=== PATIENT | female | born 1945 | race Caucasian/White ===

== ENCOUNTER 2017-04-17 19:30 | Outpatient (CLI) | payer MEDICARE, MEDICAID | END 2017-04-17 19:31 | disposition home or self-care (01) | LOC: SLEEPLAB 19:30 | PROVIDERS: ATTEND Family Medicine | DX: G47.33 Obstructive sleep apnea (adult) (pediatric) (principal); G47.10 Hypersomnia, unspecified; R53.83 Other fatigue; E66.9 Obesity, unspecified; I10 Essential (primary) hypertension; I25.10 Atherosclerotic heart disease of native coronary artery without angina pectoris | CPT/HCPCS: 95811 ==

== ENCOUNTER 2017-05-20 13:20 | Outpatient (CLI) | payer MEDICARE, MEDICAID ==
--- NOTE | 2017-05-20 14:54 | RAD ---
FRONTAL AND LATERAL IMAGING OF THE LUMBAR SPINE: Date: 05-20-17 Comparison: 03-29-17 History: Lumbar stenosis. Lumbar spine surgery in February. FINDINGS: Standing frontal and lateral radiograph lumbar spine provided. There is a disc device at the L4-5 level. Bilateral L4 and L5 pedicle screws are present with vertic ally oriented interlocking rods, stable. Bone graft material is seen lateral to these rods. Bilatera l laminectomy changes are noted at L2, L3, L4 and L5, stable. Lateral imaging demonstrates retrolisthesis at L2-3 measuring 8 mm and at L3-4 measuring 6 mm, simil ar when compared to prior imaging. There is disc space narrowing and anterior osteophyte formation a t L1-2 and L2-3, stable as well. IMPRESSION: Stable post-operative and degenerative changes within the lumbar spine as detailed above. POS: [facility]
== END 2017-05-20 13:21 | disposition home or self-care (01) ==
LOC: TBSIIMAG 13:20
PROVIDERS: ATTEND Neurological Surgery
DX: M48.061 Spinal stenosis, lumbar region without neurogenic claudication (principal); M47.816 Spondylosis without myelopathy or radiculopathy, lumbar region; Z98.890 Other specified postprocedural states
CPT/HCPCS: 72100

== ENCOUNTER 2017-09-04 21:31 | Inpatient (IN) | payer MEDICARE, MEDICAID ==
--- NOTE | 2017-09-04 22:26 | CT ---
CT HEAD WITHOUT CONTRAST: 09/04/17 Multiple axial tomograms obtained through the head without IV enhancement. HISTORY: Right side weakness. Possible stroke. Comparison made to MRI of brain from 11/16/15. FINDINGS: Mild cortical volume loss. There is evidence of old lacunar infarct in the left periventricular white matter adjacent to the anterior horn on the left. This was noted on the prior MRI. There is no evide nce of acute cortical infarct. There is no mass or hemorrhage identified. IMPRESSION: There are chronic ischemic changes. which appear stable from the prior MRI. No acute process. Mucosal thickening in the paranasal sinuses is noted. POS: [facility]
--- NOTE | 2017-09-04 22:34 | RAD ---
PORTABLE CHEST: 09/04/17 HISTORY: Possible CVA. Right sided weakness. Lung simmons appear clear of infiltrate. Heart size is upper normal with postop sternotomy change. No evidence of vascular congestion or acute process. IMPRESSION: No acute process identified. POS: [facility]
[2017-09-04 23:10] LABS: %Neutrophils 53.3 % (42.0-75.0); Hemoglobin 11.9 g/dL (12.0-16.0); Mean Corpuscular Hemoglobin 29.5 pg (27.0-31.0); Mean Corpuscular Volume 92.1 fl (81.0-99.0); Mean Platelet Volume 6.2 fL (7.4-10.4); Platelet Count 195 thou/uL (130-400); Red Blood Cell (RBC) Count 4.04 mill/uL (4.20-5.40); White Blood Cell (WBC) Count 7.2 thou/uL (4.8-10.8)
[2017-09-04 23:11] LABS: #Basophils 0.1 thou/uL (0.0-0.2); #Eosinphils 0.3 thou/uL (0.0-0.7); #Lymphocytes 2.5 thou/uL (1.20-3.40); #Monocytes 0.5 thou/uL (0.11-0.59); #Neutrophils 3.9 thou/uL (1.40-6.50); %Basophils 0.7 % (0.0-1.0); %Eosinophils 4.8 % (0.0-10.0); %Monocytes 7.3 % (0.0-10.0)
[2017-09-04 23:13] LABS: Prothrombin Time 13.4 SEC (12.0-14.7)
[2017-09-04 23:25] LABS: ALT (SGPT) 8 U/L (8-55); AST (SGOT) 10 U/L (5-34); Albumin 4.3 g/dL (3.4-4.8); Alkaline Phosphatase 81 U/L (40-150); Anion Gap 15 mmol/L (10-20); BUN (Urea Nitrogen) 14 mg/dL (9.8-20.1); Bilirubin, Total 0.3 mg/dL (0.2-1.2); Calc. Creatinine Clearance 0 mL/min (70-130); Calcium 9.5 mg/dL (7.8-10.44); Carbon Dioxide 25 mmol/L (23-31); Chloride 104 mmol/L (98-107); Estimated GFR-MDRD 59; Globulin 2.8 g/dL (2.4-3.5); Glucose 183 mg/dL (83-110); Magnesium 1.7 mg/dL (1.6-2.6); Potassium 3.7 mmol/L (3.5-5.1); Protein, Total 7.1 g/dL (6.0-8.3); Sodium 140 mmol/L (136-145)
[2017-09-04 23:27] LABS: CKMB 0.7 ng/mL (0-6.6); Troponin I 0.018 ng/mL (< 0.028)
[2017-09-05 02:48] LABS: Troponin I Less than 0.010 ng/mL (< 0.028)
[2017-09-05] MEDS ORDERED: Bisacodyl 10 MG SUPP PR PRN (05:11)
[2017-09-05] MEDS ORDERED: Calcium Carbonate 500 MG ChewTAB PO PRN (05:11)
[2017-09-05] MEDS ORDERED: Ondansetron HCl/PF 4 MG/2 ML Vial IVP PRN (05:11)
[2017-09-05] MEDS ORDERED: Senokot 8.6 MG TAB PO PRN (05:11)
[2017-09-05] MEDS ORDERED: Ondansetron ODT 4 MG TAB PO PRN (05:11)
[2017-09-05] MEDS ORDERED: Acetaminophen 325 MG TAB PO PRN (05:11)
[2017-09-05] MEDS ORDERED: hydrALAZINE 20 MG/ML VIAL SLOW IVP PRN (05:14)
[2017-09-05 05:36] LABS: #Eosinphils 0.4 thou/uL (0.0-0.7); #Monocytes 0.6 thou/uL (0.11-0.59); #Neutrophils 3.2 thou/uL (1.40-6.50); %Basophils 0.6 % (0.0-1.0); %Eosinophils 5.3 % (0.0-10.0); %Lymphocytes 42.1 % (21.0-51.0); Hemoglobin 12.3 g/dL (12.0-16.0); Mean Corpuscular HGB CONC 33.5 g/dL (32.0-36.0); Mean Corpuscular Hemoglobin 31.8 pg (27.0-31.0); Mean Corpuscular Volume 94.9 fl (81.0-99.0); Mean Platelet Volume 6.8 fL (7.4-10.4); Platelet Count 180 thou/uL (130-400); RBC Distribution Width 12.1 % (11.5-14.5); Red Blood Cell (RBC) Count 3.87 mill/uL (4.20-5.40); White Blood Cell (WBC) Count 7.2 thou/uL (4.8-10.8)
[2017-09-05 05:42] LABS: Troponin I Less than 0.010 ng/mL (< 0.028)
[2017-09-05 05:45] LABS: Anion Gap 14 mmol/L (10-20); BUN (Urea Nitrogen) 17 mg/dL (9.8-20.1); Calc. Creatinine Clearance 70 mL/min (70-130); Calcium 9.4 mg/dL (7.8-10.44); Carbon Dioxide 22 mmol/L (23-31); Chloride 106 mmol/L (98-107); Estimated GFR-MDRD 66; Glucose 102 mg/dL (83-110); Potassium 3.9 mmol/L (3.5-5.1); Sodium 138 mmol/L (136-145)
[2017-09-05 05:47] LABS: Hemoglobin A1c 5.9 % (4.0-6.0)
--- NOTE | 2017-09-05 06:49 | HP-2 ---
CODE STATUS: Full. ATTENDING: Dr. Elmer Gutiérrez RESIDENT: Dr. Juan Mendoza CHIEF COMPLAINT: Right-sided weakness. HISTORY OF PRESENT ILLNESS: A 71-year-old female who presents with dysarthria and word salad on night. The patient began to have a right-sided upper and lower extremity weakness and numbness morning when she woke up. She also was unable to hold her arm prior to arriving to the ED. She also states that she has associated headache and right lower facial numbness. Her sister is pr esent during this interview and said that she does not necessarily have a hard time producing words, but she says that she has a hard time trying to find the correct words and the correct sequence and a ppropriate manner. The patient has denied chest pain, shortness of breath, and vision changes during this time. The patient does admit that she has had a headache and that is out of the norm for her. No other complaints at this time. PAST MEDICAL HISTORY: CAD, PVD, hyperlipidemia, hypertension, prior CVA, asthma, lumbar radiculopath y and obstructive sleep apnea. PAST SURGICAL HISTORY: Tonsillectomy, adenoidectomy, , tubal ligation, a 3-vessel CABG in 2 017. ALLERGIES: BETA BLOCKERS, LIPITOR, CRESTOR. MEDICATIONS: 1. Ferrous gluconate 37.5 mg p.o. daily. 2. Lisinopril 10 mg p.o. daily. 3. Fluvastatin 40 mg. 4. Aspirin 81 mg. 5. Bimatoprost eyedrops. 6. Diltiazem 120 mg extended release. 7. Clopidogrel 75 mg. FAMILY HISTORY: Significant for heart issues. SOCIAL HISTORY: No tobacco, alcohol or drug use. REVIEW OF SYSTEMS: Twelve point review of systems was negative other than listed as above in the HPI . PHYSICAL EXAMINATION: VITAL SIGNS: BP was 155/68, pulse 87, temperature 98.3, respiration 16, oxygen saturation is 95% on room air, current weight 74 kilos. GENERAL: Alert and oriented x4, appropriate, interactive. EYES: PERRLA. ENT: Nasal mucosa and oropharynx within normal limits. NECK: Supple, no lymphadenopathy. CARDIOVASCULAR: Regular rate and rhythm. No murmurs. Radial and pedal pulses equal bilaterally. RESPIRATORY: Normal effort, no retraction. LUNGS: Clear to auscultation bilaterally. SKIN: Warm and dry. No cyanosis. She did have a bruise to the dorsum of her left foot. ABDOMEN: Soft, nontender to palpation. Bowel sounds present x4. No masses or distention. EXTREMITIES: No clubbing, cyanosis or edema. MUSCULOSKELETAL: Structure and tone were within normal limits. Muscle strength is 4/5 on her right upper extremity, 5/5 on her left upper extremity, she had 5/5 left lower extremity strength and her r ight lower extremity was 3/5. She also had a prior positive pronator drift and a right lower facial droop with paresthesias. NEUROLOGIC: GCS was 15. PSYCHIATRIC: Appropriate. LABORATORY DATA: White blood cell count 7.2, platelet count 195, hemoglobin 11.9, hematocrit 37.2, M CV 92.1, % neutrophils 53.3. Sodium was 140, potassium 3.7, chloride 104, bicarbonate 25, BUN 14, cr eatinine 0.93, glucose was 183. CK-MB was 0.7. Troponin I was 0.018. Calcium was 9.5, total protei n 7.1, albumin 4.3, total bilirubin 0.3, AST 10, ALT 8, alkaline phosphatase 81. PT was 13.4, INR is 1.0, mag was 1.7. TSH was 0.72. EKG showed normal sinus rhythm with T-wave inversions in V1 and V2 . Chest x-ray showed nothing acute. Brain CT showed chronic ischemic changes, no acute process. ASSESSMENT AND PLAN: A 71-year-old female. 1. Right extremity weakness, rule out cerebrovascular accident. She does have a past history of a c erebrovascular accident. We have MRI and MRA pending. We will continue her statin. Consult Neuro a nd the Stroke Team. We will also get PT, OT, and speech therapy on board for evaluation and treatmen t. She also has a past history of carotid stenosis. Her ABCD score is 6. We also have a fasting li pid panel and an A1c pending at this time. 2. Coronary artery disease status post 3-vessel coronary artery bypass graft. We will continue Plav ix and aspirin. 3. Hypertension. We are going to allow for permissive hypertension to 220/110. Her symptoms did be gin on Friday; however, her weakness did not begin until . At this time, it looks like he r blood pressure is well controlled without any acute intervention. 4. Hyperlipidemia. We will continue her statin therapy. 5. Mild anemia. We will continue her iron. We will recommend outpatient follow up for this. DISPOSITION/LENGTH OF HOSPITAL STAY: Stroke unit and 1. Symptomatic medications will be provided. History and physical exam as well as management has been discussed with Dr. Gutiérrez
[2017-09-05] MEDS: Sodium Chloride 0.9% 1,000 ML IV SCH ×2 (06:52→15:48)
[2017-09-05] MEDS: Docusate 100 MG CAP PO SCH ×2 (08:11→20:27)
[2017-09-05] MEDS: Famotidine 20 MG TAB PO SCH ×2 (08:11→20:27)
[2017-09-05] MEDS: Clopidogrel Bisulfate 75 MG TAB PO SCH (08:12)
[2017-09-05] MEDS ORDERED: Aspirin 81 mg Enteric Coated Tablet PO SCH (09:00)
[2017-09-05] MEDS ORDERED: Enoxaparin Sodium 40 MG/0.4 ML SYRINGE SC SCH (09:00)
--- NOTE | 2017-09-05 15:43 | MRI ---
BRAIN MRI WITH AND WITHOUT CONTRAST: CLINICAL HISTORY: History of carotid stenosis, CVA, right-sided weakness. FINDINGS: There is abnormal multifocal punctate restricted diffusion involving left MCA territory, within front al and parietal lobes and within bilateral deep arreola nuclei, compatible with recent infarctions. No significant intracranial hemorrhagic susceptibility. There is mild gliosis asymmetrical involving th e left cerebral hemisphere. No pathologic mass-producing intraaxial enhancement. The imaged skull b ase flow voids are grossly patent. There is scattered paranasal sinus mucosal thickening. Mild left mastoid and trace right mastoid fluid present. IMPRESSION: Punctate, multifocal left middle cerebral artery distribution, and bilateral basal ganglia recent inf arctions. POS: [facility]
--- NOTE | 2017-09-05 16:00 | MRI ---
MRA OF THE NECK WITH AND WITHOUT CONTRAST: 09/05/17 CLINICAL HISTORY: History of carotid stenosis, CVA, right sided weakness. FINDINGS: There is patient motion on the exam which does limit assessment. The imaged aortic arch is grossly pa tent as are the great vessels that emanate from the aortic arch. The visualized subclavian arteries r eveals no high grade focal stenosis or occlusion. The proximal aspect of the right vertebral artery i s limited in visualization. Otherwise, the bilateral vertebral arteries are patent as is the basilar artery. Each common carotid artery reveals no high grade stenosis or occlusion. There is mild concent porfirio narrowing of the each proximal aspect of the bilateral cervical internal carotid arteries which a re otherwise patent. IMPRESSION: Concentric areas of mild luminal stenosis involving the proximal aspect of each cervical ICA. Incomplete visualization of the proximal aspect of the right vertebral artery. POS: [facility]
[2017-09-05] MEDS ORDERED: ISOVUE-370 76%-LOCM 1 ML ONE (16:41)
[2017-09-05] MEDS ORDERED: Gadobenate Dimeglumine 529 MG/1 ML (20ML VIAL) ONE ×2 (16:42→16:43)
[2017-09-05] MEDS: Latanoprost 0.005% Ophth Soln 2.5 ml Bottle EA EYE SCH (20:26)
[2017-09-05] MEDS: FLUVASTATIN SODIUM 20 MG PO SCH (20:28)
[2017-09-05] MEDS ORDERED: BIMATOPROST TOP SCH (21:00)
[2017-09-05] MEDS ORDERED: FLUVASTATIN SODIUM 40 MG PO SCH (21:00)
--- NOTE | 2017-09-05 23:01 | CT ---
CT OF BRAIN PERFORMED WITHOUT CONTRAST ENHANCEMENT: 09/05/17 HISTORY: Altered mental status. COMPARISON: Prior day's study. The ventricular and cisternal system shows some mild atrophy. An old area of infarct adjacent to the left frontal horn is noted. There is no signs of intracerebral hemorrhage or extra-axial fluid collec tions. Mastoid air cells are clear. There is extensive bilateral ethmoid air cell disease. Also some frontal sinus and maxillary sinus mucosal changes. IMPRESSION: 1. No acute intracranial abnormalities. 2. Fairly extensive sinus disease. POS: [facility]
--- NOTE | 2017-09-05 23:39 | CT ---
CT ANGIO OF HEAD AND NECK PERFORMED WITH CONTRAST ENHANCEMENT WITH 3D RECONSTRUCTIONS: 09/05/17 HISTORY: Right sided weakness. History of a previous CVA in 2014. COMPARISON: Previous CT of the brain done earlier today. CT ANGIO OF NECK PERFORMED WITH CONTRAST ENHANCEMENT: The lung apices are clear. The thyroid is normal in appearance. Focal cord region is unremarkable. Pa rapharyngeal spaces are clear. The parotid and submandibular gland regions are unremarkable. No signi ficant adenopathy demonstrated. A good angiographic study was obtained. The left vertebral artery is dominant. There is some atherosc lerotic change at the origin of the right vertebral. There is a bovine type origin of the left verteb ral artery from the right innominate. On the right side, the right common carotid artery is normal in appearance. There is dense calcification at the origin of the right internal carotid artery. It make s it difficult to estimate the degree of stenosis to be moderate, approximately 60% by NASCET criteri a. The distal right internal carotid artery is very tortuous. On the left side, there is no significant stenosis of the left common carotid artery. There is extens saman calcified and soft plaque at the origin of the left internal carotid artery, again with moderate stenosis. It is somewhat difficult estimated due to the presence of the calcified plaque, but I would estimate it as moderate to moderately severe, probably in the 70% range. CT ANGIO OF BRAIN PERFORMED WITH CONTRAST ENHANCEMENT: There is some atherosclerotic change in the cavernous portions of both internal carotid arteries. The A1 and M1 segments of both anterior and middle cerebral arteries as well as the M2 segments show no areas of significant narrowing or any signs of intraluminal thrombus. IMPRESSION: Moderate calcified plaque formation at the origin of both internal carotid arteries by NASCET criteri a. I would estimate the changes on the right to be moderate stenosis, probably greater than 50% range but probably less than 70% and the changes on the left to be in the 60-70% range. Both are difficult to estimated due to the calcified plaque. POS: [facility]
--- NOTE | 2017-09-06 00:04 | PDOC.EVN ---
Event Note - Event Note Event Note: Aly Andersen called on patient at 2229. Resident to beside. Patient's sister stated that she was more lethargic and was essentially aphasic. She also states that she had significant recurrence of her weakness on her right side. She states she was completely normal prior to this episode. She then became flushed , lethargic, and her deficits on her right side returned. NIH on admission was 2 and NIH during code was 13. Aly Andersen team responded efficiently with lab values drawn, a stat Head CT, and Head & Neck CTA. O: Gen: NAD HEENT: Facial paralysis, parathesias to lower face bilaterally CV: Tachycardic rate, regular rhythm Resp: No acute distress, CTA Abdomen: Soft, nontender Neuro: Expressive aphasia, 2/5 weakness to right Upper and Lower extremity A/P: 1. Recurrent right sided deficits with recent MCA infarcts - Continue Neuro checks - Allow for permissive HTN - Consider CV surgery consultation in AM for possible CEA - Dr. Hankins with Neurology has been consulted and a call was placed to him, pending response. - CTA showed no evidence of surgical amendable lesion. - Patient not candidate for TPA because of absolute contraindication of recent CVA 2 days ago. - Will continue plan of care. <Juan Mendoza - Last Filed: 09/05/17 23:53> Attending Addendum - Attending Addendum I personally evaluated the patient and discussed the management with Dr. Mendoza at 2330 on 09/05/17 I agree with the History, Examination, Assessment and Plan documented above with any addition or exceptions noted below. Patient is a 71 y/o WF admitted for L MCA infarct who has worsening of her neurologic function with R sided weakness and facial droop. A aly andersen was called and patient got CT head showing no hemorrhagic lesions. CTA done and didn't show a surgically amenable lesion. By the time I saw the patient at 2330 she was had RUE and RLE 4/5 strength and was fluent and A&O x 3. No obvious facial droop. Per family she was near her baseline. 1) MCA infarct- pt on ASA and plavix and appears to continue to have CVA. No obvious sign of embolic source- no atrial fibrillation and recent ECHO doesn't show any clots. Will check blood cx x 2 to r/o septic emboli (though history not consistent with this). Appreciate neuro recs for anticoagulation. Patient was not a tpa candidate secondary to her recent stroke and rapidly resolving symptoms. No surgically amenable lesion. 2) L ICA with 60-70% stenosis- in light of her recurrent CVAs recommend CV surg consult in am. <Chichi Winn - Last Filed: 09/06/17 00:14>
[2017-09-06] MEDS: Sodium Chloride 0.9% 1,000 ML IV SCH ×2 (00:42→09:18)
[2017-09-06 05:25] LABS: #Basophils 0.1 thou/uL (0.0-0.2); #Eosinphils 0.5 thou/uL (0.0-0.7); #Neutrophils 7.8 thou/uL (1.40-6.50); %Basophils 0.5 % (0.0-1.0); %Eosinophils 4.1 % (0.0-10.0); %Lymphocytes 24.6 % (21.0-51.0); %Monocytes 7.8 % (0.0-10.0); %Neutrophils 62.9 % (42.0-75.0); Hemoglobin 13.2 g/dL (12.0-16.0); Mean Corpuscular Volume 94.1 fl (81.0-99.0); Mean Platelet Volume 6.9 fL (7.4-10.4); Platelet Count 204 thou/uL (130-400); RBC Distribution Width 12.1 % (11.5-14.5); Red Blood Cell (RBC) Count 4.12 mill/uL (4.20-5.40); White Blood Cell (WBC) Count 12.4 thou/uL (4.8-10.8)
[2017-09-06 05:53] LABS: Anion Gap 14 mmol/L (10-20); BUN (Urea Nitrogen) 12 mg/dL (9.8-20.1); Calc. Creatinine Clearance 70 mL/min (70-130); Calcium 9.8 mg/dL (7.8-10.44); Carbon Dioxide 22 mmol/L (23-31); Cardiac Risk 4.6 (Less than 4.5); Chloride 107 mmol/L (98-107); Cholesterol 222 mg/dl (< 200 Desired); Estimated GFR-MDRD 67; Glucose 128 mg/dL (83-110); HDL Cholesterol 48 mg/dL (>60 Neg Risk); LDL Cholesterol, Calculated 144 mg/dL; Sodium 139 mmol/L (136-145); Triglycerides 151 mg/dL (Less than 150)
--- NOTE | 2017-09-06 08:31 | PDOC.FM ---
- Subjective Subjective: Overnight Aly Fermin was called, patient with new focal neurologic deficits and likely CVA. Today, patient is doing well. Sister reports overnight was unresponsive and not able to even form words. Today she is appropriately responding to questions with dysarthria no worse than yesterday. Patient still reports difficulty finding the words she wants to say. - Objective MAR Reviewed: Yes Vital Signs & Weight: Vital Signs (12 hours) Temp Pulse Pulse Pulse Pulse Pulse Pulse 09/06/17 08:00 99.6 F 100 09/06/17 04:38 98.7 F 105 H 09/06/17 00:46 98.9 F 108 H 09/05/17 22:30 102 H 105 H 114 H 111 H 115 H Pulse Pulse Pulse Resp Resp Resp Resp 09/06/17 08:00 20 09/06/17 04:38 20 09/06/17 00:46 16 09/05/17 22:30 110 H 110 H 115 H 20 24 H 20 Resp Resp Resp Resp Resp BP BP 09/06/17 08:00 09/06/17 04:38 09/06/17 00:46 09/05/17 22:30 20 24 H 20 18 24 H 197/98 H 205/95 H BP BP BP BP BP BP BP 09/06/17 08:00 141/76 H 09/06/17 04:38 148/90 H 09/06/17 00:46 165/88 H 09/05/17 22:30 196/110 H 191/111 H 203/92 H 144/82 H 186/111 H 160/86 H Pulse Ox Pulse Ox Pulse Ox Pulse Ox Pulse Ox Pulse Ox Pulse Ox 09/06/17 08:00 95 09/06/17 04:38 96 09/06/17 00:46 94 L 09/05/17 22:30 99 96 97 95 96 95 Pulse Ox Pulse Ox 09/06/17 08:00 09/06/17 04:38 09/06/17 00:46 09/05/17 22:30 97 97 Weight Weight 73.936 kg I&O: 09/05/17 09/06/17 09/07/17 06:59 06:59 06:59 Intake Total 100 1540 Output Total 0 Balance 100 1540 Result Diagrams: 09/06/17 04:37 09/06/17 04:37 Phys Exam - Physical Examination Constitutional: NAD HEENT: moist MMs, oral pharynx no lesions Respiratory: no wheezing, no rales, clear to auscultation bilateral Cardiovascular: RRR, no significant murmur Gastrointestinal: soft, non-tender Musculoskeletal: no edema, pulses present Neurological: normal sensation, moves all 4 limbs RUE and RLE 3/5 weakness, dysarthria with speech, word finding aphasia Psychiatric: A&O x 3 Skin: cap refill <2 seconds Dx/Plan (1) CVA (cerebral vascular accident) Code(s): I63.9 - CEREBRAL INFARCTION, UNSPECIFIED Status: Acute (2) Bilateral carotid artery disease Code(s): I77.9 - DISORDER OF ARTERIES AND ARTERIOLES, UNSPECIFIED Status: Acute (3) CAD (coronary artery disease) Code(s): I25.10 - ATHSCL HEART DISEASE OF [place] CORONARY ARTERY W/O ANG PCTRS Status: Acute (4) Lumbar stenosis Code(s): M48.061 - SPINAL STENOSIS, LUMBAR REGION WITHOUT NEUROGENIC MAXWELL Status: Acute (5) Peripheral vascular disease Code(s): I73.9 - PERIPHERAL VASCULAR DISEASE, UNSPECIFIED Status: Acute (6) History of cerebrovascular accident (CVA) with residual deficit Code(s): I69.30 - UNSPECIFIED SEQUELAE OF CEREBRAL INFARCTION Status: Chronic (7) Hyperlipidemia Code(s): E78.5 - HYPERLIPIDEMIA, UNSPECIFIED Status: Chronic Qualifiers: (8) Hypertension Code(s): I10 - ESSENTIAL (PRIMARY) HYPERTENSION Status: Chronic Qualifiers: - Plan Plan: L MCA Infarct - overnight likely recurrent CVA, CT with no evidence, but patient with new focal deficits - MRA with mild concentric luminal stenosis bilaterally - consult Neuro, appreciate recs - consult CV surgery, appreciate recs - Neuro checks q4h - allow for permissive HTN x24h - continue Plavix and statin - patient with hx of muscle cramps with statin use, ideally increase statin dose if tolerable Hx of CVA HTN - hold BP meds to allow for permissive HTN CAD s/p CABG - home meds HLD - reports hepatotoxicity and thrombocytopenia with Crestor and Lipitor in the past years ago - Continue Fluvastatin Lumbar Stenosis s/p Fusion - Tylenol prn
[2017-09-06] MEDS: Clopidogrel Bisulfate 75 MG TAB PO SCH (09:13)
[2017-09-06] MEDS: Famotidine 20 MG TAB PO SCH ×2 (09:14→20:31)
[2017-09-06] MEDS: Docusate 100 MG CAP PO SCH ×2 (09:14→20:31)
[2017-09-06] MEDS ORDERED: Heparin 25,000 units/D5W 500 ML IVPB SCH (11:00)
[2017-09-06 11:37] LABS: Platelet Count 212 thou/uL (130-400)
[2017-09-06] MEDS ORDERED: Sodium Chloride 0.9% 1,000 ML IV SCH (11:50)
--- NOTE | 2017-09-06 14:26 | CON ---
DATE OF CONSULTATION: 09/06/2017 NEUROLOGY CONSULTATION CONSULTING PHYSICIAN: [facility]. IMPRESSION: 1. Recurrent left middle cerebral artery territory ischemic events. 2. Borderline carotid stenosis. 3. The patient has failed maximum medical therapy. PLAN: Dr. Salazar will determine whether endarterectomy is necessary. HISTORY OF PRESENT ILLNESS: Ms. Phillip is a 71-year-old white female with a past history of a stroke back in 2013. She had expressive aphasia and right-sided weakness that resolved over about a 3-nancy h interval. She presented with recurrent symptoms of expressive language difficulties. Her symptoms did improve. She had initial CT scans, which did not show any acute ischemic event. Her echocardio gram showed a normal ejection fraction of 55%-60%. She had a CTA, which showed a moderate amount of calcified plaque within the internal carotid arteries. The right side probably was in the range of a bout 50%, but less than 70%. The left side showed a 60%-70% area of stenosis. She has had MRA of th e carotids, which showed a similar narrowing. MRI revealed some punctate ischemic changes in the lef t middle cerebral artery territory. The patient was taking aspirin, Plavix and a statin prior to thi s admission. She had a period of unresponsiveness yesterday lasting approximately [address] scan did not show any changes. She is back to her baseline. PAST MEDICAL HISTORY: Coronary artery disease, stroke, hyperlipidemia, hypertension. FAMILY HISTORY: Noncontributory. ALLERGIES: LIPITOR, BETA BLOCKERS, DYAZIDE, BYSTOLIC, CRESTOR, ZANAFLEX. SOCIAL HISTORY: No tobacco or alcohol use. 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 REVIEW OF SYSTEMS: No complaint of headache, nausea, vomiting, chest pain or shortness of breath. PHYSICAL EXAMINATION: GENERAL: She is an overweight, elderly lady, sitting in bed, in no distress. VITAL SIGNS: Temperature 99.6, pulse 100, respirations 20, saturation 95%. HEENT: Pupils equal and reactive. Conjunctivae are clear. Oropharynx clear. NECK: Supple. EXTREMITIES: No cyanosis. NEUROLOGIC: She is alert and cooperative. She had some minor word finding difficulty, but she appea red to be nondysarthric. Cranial nerves showed a slight right nasolabial fold flattening. Motor exa m showed symmetric broiler chef or cook strength. She can walk independently. No abnormal movements were seen. Sen sation was equal to touch. LABORATORY STUDIES: Including CBC, coags and chemistries were unremarkable other than a cholesterol level of 222 with a ratio 4.6. SUMMARY: A 71-year-old woman who is on maximum medical therapy prior to admission with recurrent str adelaide symptoms in the left middle cerebral artery territory. She has borderline severity of stenosis, which may need to be addressed surgically. I relayed this decision to Dr. Salazar who knows this patie nt well. Otherwise, I would continue with her current medications.
--- NOTE | 2017-09-06 15:29 | CON ---
DATE OF CONSULTATION: 09/06/2017 HISTORY OF PRESENT ILLNESS: This is a 71-year-old lady with a remote history of a cryptogenic stroke who had some mild residual expressive aphasia, but quite functional. She then was noted to have andrey e more solid speech to normal about 2 nights ago and then the next day was noted to have marked right arm weakness and was brought to the emergency room. Last night, she had an episode for which she wa s lethargic and aphasic with right hemiparesis. She was sent down for CT scan and when she returned, she had improvement in her symptoms. CTA was reviewed by me and the patient does have 60%-70% steno sis in both internal carotid arteries, right and left and appears to have some thrombus in her left i nternal carotid artery at the distal aspect of this carotid artery. PAST MEDICAL HISTORY: Significant for coronary artery disease having undergone coronary bypass graft ing 1 year ago. She has hyperlipidemia and hypertension as well as obstructive sleep apnea. PAST SURGICAL HISTORY: Includes tonsillectomy, adenoidectomy and tubal ligation. She has also had 3 -vessel coronary bypass grafting. ALLERGIES: She reports allergies to BETA BLOCKERS, LIPITOR and CRESTOR. MEDICATIONS: At home include fluvastatin 40 mg nightly having recently had this increased from 20 mg , lisinopril 10 mg a day, diltiazem CD 120 a day, aspirin 81 a day, Plavix 75 a day. PHYSICAL EXAMINATION: GENERAL: She is an alert and cooperative lady. VITAL SIGNS: Resting heart rate of about 100. NECK: Reveals no carotid bruits. LUNGS: Clear to auscultation. CARDIAC: Reveals distant heart sounds with no murmurs. ABDOMEN: Obese, nontender. EXTREMITIES: She has 2/5 strength in the right hand county judge and 4/5 strength in right lower extremity d istal strength. NEUROLOGIC: She has a right lower facial droop and she has some mild hesitation in her speech. PLAN: At this time is for heparinization and then plan on the left carotid endarterectomy tomorrow. An informed consent has been obtained.
--- NOTE | 2017-09-06 18:33 | PDOC.EVN ---
Event Note - Event Note Event Note: S: Paged by nursing staff at approximately 1815. Informed patient was exhibiting stroke-like symptoms including worsening of right sided weakness, aphasia, and facial droop. Resident arrived at bedside approximately 5 minutes after initial page. Nursing staff and family informed that patient had returned to previous baseline. O: Vitals: BP 188/98 GEN: NAD Neuro: 3/5 strength bilateral upper extremities. 4/5 strength bilateral lower extremities. right facial droop which is chronic per family and nursing staff. A&P: TIA with prior left CVA Nursing staff are calling Dr. Salazar to inform him. Will await recommendations. Pharmacy to dose heparin. Continue neurochecks. Scheduled for carotid endartectomy in the morning. Case discussed with Dr. Gutiérrez.
[2017-09-06] MEDS: FLUVASTATIN SODIUM 20 MG PO SCH (20:30)
[2017-09-06] MEDS: Latanoprost 0.005% Ophth Soln 2.5 ml Bottle EA EYE SCH (20:31)
[2017-09-07 05:52] VITALS: BMI 31.6
[2017-09-07 06:14] LABS: #Eosinphils 0.5 thou/uL (0.0-0.7); #Monocytes 0.6 thou/uL (0.11-0.59); #Neutrophils 3.6 thou/uL (1.40-6.50); %Basophils 0.3 % (0.0-1.0); %Eosinophils 6.2 % (0.0-10.0); %Lymphocytes 38.9 % (21.0-51.0); %Monocytes 7.4 % (0.0-10.0); %Neutrophils 47.3 % (42.0-75.0); Hemoglobin 11.7 g/dL (12.0-16.0); Mean Corpuscular HGB CONC 34.3 g/dL (32.0-36.0); Mean Corpuscular Hemoglobin 32.3 pg (27.0-31.0); Mean Corpuscular Volume 94.2 fl (81.0-99.0); Mean Platelet Volume 7.3 fL (7.4-10.4); Platelet Count 182 thou/uL (130-400); RBC Distribution Width 12.1 % (11.5-14.5); Red Blood Cell (RBC) Count 3.63 mill/uL (4.20-5.40); White Blood Cell (WBC) Count 7.7 thou/uL (4.8-10.8)
--- NOTE | 2017-09-07 06:31 | PDOC.FM ---
- Subjective Subjective: Overnight had 2 episodes of R hemiparesis and aphasia again that resolved within 5 minutes each time. This morning, is at baseline from previous days. She is awake and enjoying conversation with family. Is making fluid sentences without hesitation this morning. Still reports trouble finding words but mildly improved. - Objective MAR Reviewed: Yes Vital Signs & Weight: Vital Signs (12 hours) Temp Pulse Resp BP Pulse Ox 09/07/17 03:39 97.8 F 91 20 154/78 H 98 09/07/17 00:08 99.3 F 92 16 148/75 H 94 L 09/06/17 20:23 98.7 F 87 16 172/78 H 98 09/06/17 20:10 98.7 F 87 16 98 Weight Weight 75.841 kg I&O: 09/05/17 09/06/17 09/07/17 06:59 06:59 06:59 Intake Total 100 1540 1331 Output Total 0 Balance 100 1540 1331 Result Diagrams: 09/07/17 02:08 09/07/17 02:08 <Janice Love - Last Filed: 09/07/17 07:47> - Objective Vital Signs & Weight: Vital Signs (12 hours) Temp Pulse Resp BP Pulse Ox 09/07/17 03:39 97.8 F 91 20 154/78 H 98 09/07/17 00:08 99.3 F 92 16 148/75 H 94 L Weight Weight 75.841 kg I&O: 09/06/17 09/07/17 09/08/17 06:59 06:59 06:59 Intake Total 1540 1331 Balance 1540 1331 Result Diagrams: 09/07/17 02:08 09/07/17 02:08 <Elmer Gutiérrez - Last Filed: 09/07/17 11:32> Phys Exam - Physical Examination Constitutional: NAD HEENT: PERRLA, moist MMs Respiratory: no wheezing, no rales, clear to auscultation bilateral Cardiovascular: RRR, no significant murmur Gastrointestinal: soft, non-tender Musculoskeletal: no edema, pulses present Neurological: moves all 4 limbs RUE and RLE with 3/5 weakness Psychiatric: A&O x 3 <Janice Love - Last Filed: 09/07/17 07:47> Dx/Plan (1) CVA (cerebral vascular accident) Code(s): I63.9 - CEREBRAL INFARCTION, UNSPECIFIED Status: Acute (2) Bilateral carotid artery disease Code(s): I77.9 - DISORDER OF ARTERIES AND ARTERIOLES, UNSPECIFIED Status: Acute (3) CAD (coronary artery disease) Code(s): I25.10 - ATHSCL HEART DISEASE OF [place] CORONARY ARTERY W/O ANG PCTRS Status: Acute (4) Lumbar stenosis Code(s): M48.061 - SPINAL STENOSIS, LUMBAR REGION WITHOUT NEUROGENIC MAXWELL Status: Acute (5) Peripheral vascular disease Code(s): I73.9 - PERIPHERAL VASCULAR DISEASE, UNSPECIFIED Status: Acute (6) History of cerebrovascular accident (CVA) with residual deficit Code(s): I69.30 - UNSPECIFIED SEQUELAE OF CEREBRAL INFARCTION Status: Chronic (7) Hyperlipidemia Code(s): E78.5 - HYPERLIPIDEMIA, UNSPECIFIED Status: Chronic (8) Hypertension Code(s): I10 - ESSENTIAL (PRIMARY) HYPERTENSION Status: Chronic - Plan Plan: L MCA Infarct - Overnight had what appears to be two TIA's - MRA with mild concentric luminal stenosis bilaterally, CTA with moderate b/l ICA stenosis and L ICA thrombus - consult Neuro, appreciate recs - consult CV surgery, plan for endarterectomy today - Neuro checks q4h - allow for permissive HTN x24h - continue Plavix and statin - Heparin ggt Hx of CVA - on maximal medical therapy HTN - hold BP meds to allow for permissive HTN CAD s/p CABG - home meds HLD - reports hepatotoxicity and thrombocytopenia with Crestor and Lipitor in the past years ago - Ideally would like to be on high intensity statin but due to above reaction will continue home Fluvastatin - cholesterol elevated to 233, Fluvastatin increased in clinic recently, recommend repeat FLP in 6 weeks to reevaluate Lumbar Stenosis s/p Fusion - Tylenol prn <Janice Love - Last Filed: 09/07/17 07:47> Attending Addendum - Attending Addendum I personally evaluated the patient and discussed the management with Dr. Love I agree with the History, Examination, Assessment and Plan documented above with any addition or exceptions noted below. Patient is seen in ICU post op from endarterectomy and is awake, alert, and neurologically intact. Patient tolerated surgery well. Dr. Hankins and Dr. Salazar following. Will continue to monitor in ICU. <Elmer Gutiérrez - Last Filed: 09/07/17 11:32>
[2017-09-07 06:37] LABS: Anion Gap 11 mmol/L (10-20); BUN (Urea Nitrogen) 10 mg/dL (9.8-20.1); Calc. Creatinine Clearance 78 mL/min (70-130); Calcium 9.1 mg/dL (7.8-10.44); Carbon Dioxide 23 mmol/L (23-31); Chloride 109 mmol/L (98-107); Estimated GFR-MDRD 73; Glucose 116 mg/dL (83-110); Potassium 3.6 mmol/L (3.5-5.1); Sodium 139 mmol/L (136-145)
[2017-09-07] MEDS ORDERED: Protamine Sulfate 50 MG/5 ML VIAL ONE (07:27)
[2017-09-07] MEDS ORDERED: Heparin 5,000 UNITS/ML VIAL ONE (07:27)
[2017-09-07] MEDS ORDERED: CEFAZOLIN/Water 2 GM/20 ML SYRINGE ONE (07:51)
[2017-09-07] MEDS ORDERED: Fentanyl 100 MCG/2 ML VIAL ONE (08:03)
[2017-09-07] MEDS ORDERED: Ondansetron HCl/PF 4 MG/2 ML Vial IVP PRN ×2 (08:57→10:18)
[2017-09-07] MEDS ORDERED: Sodium Chloride 0.9% 1,000 ML IV SCH (10:18)
[2017-09-07] MEDS ORDERED: Fentanyl 100 MCG/2 ML VIAL SLOW IVP PRN (10:18)
[2017-09-07] MEDS ORDERED: Acetaminophen 325 MG TAB PO PRN (10:18)
[2017-09-07] MEDS ORDERED: HYDROcodone/Acetaminophen 5/325 mg Tablet PO PRN (10:18)
[2017-09-07] MEDS ORDERED: Phenylephrine 10 MG/NS 250 ML 250 ML IVPB PRN (10:18)
[2017-09-07] MEDS: Docusate 100 MG CAP PO SCH (11:11)
[2017-09-07] MEDS: Famotidine 20 MG TAB PO SCH (11:11)
[2017-09-07] MEDS: Clopidogrel Bisulfate 75 MG TAB PO SCH (11:24)
[2017-09-07] MEDS ORDERED: Dexamethasone 20 MG/5 ML VIAL ONE (14:41)
[2017-09-07] MEDS ORDERED: Propofol 200 MG/20 ML VIAL ONE (14:41)
[2017-09-07] MEDS ORDERED: Glycopyrrolate 0.2 MG/ML 5 ML SYRINGE ONE (14:41)
[2017-09-07] MEDS ORDERED: Heparin 10,000 UNITS/ 10 ML VIAL ONE (14:41)
[2017-09-07] MEDS ORDERED: Ondansetron HCl/PF 4 MG/2 ML Vial ONE (14:41)
[2017-09-07] MEDS ORDERED: Labetalol 100 MG/20 ML MDV ONE (14:41)
[2017-09-07] MEDS ORDERED: Metoprolol Tartrate 5 MG/5 ML VIAL ONE (14:41)
[2017-09-07] MEDS ORDERED: PHENYLEPHRINE-NS 100 MCG/ML 10 ML SYRINGE ONE (14:41)
[2017-09-07] MEDS: CEFAZOLIN/Water 2 GM/20 ML SYRINGE SLOW IVP SCH ×2 (16:55→23:10)
--- NOTE | 2017-09-07 17:09 | OP ---
PREOPERATIVE DIAGNOSES: [place] transient ischemic attack and cerebrovascular accident. POSTOPERATIVE DIAGNOSES: [place] transient ischemic attack and cerebrovascular accident. PROCEDURE: Left carotid endarterectomy with bovine patch. SURGEON: Lucas Salazar M.D. ANESTHESIA: General. ESTIMATED BLOOD LOSS: 100. PROCEDURE: After adequate anesthesia had been obtained, the patient was placed on a shoulder roll an d head turned to the right slightly. Ultrasound was used to guide eventual incision. After prepping and draping, incision was made and carried down through the platysma rotating sternocleidomastoid mu scle. The common carotid artery was isolated gently encircling it. Following this, dissection was c arried cephalad. The internal carotid artery posterior to the external carotid artery and the network designer al carotid artery required dissection to mobilize it minimizing impact on the internal carotid artery . Heparin was then given following which clamps were applied to the internal distally, external, and common carotid artery. Arteriotomy was performed following which a soft plaque protruding into the lumen of the internal carotid artery was seen as the probable source. A 10-[place] shunt was then cecy april following which endarterectomy was performed with satisfactory tapering distally. The area was t horoughly irrigated to remove any loose debris after endarterectomy had been completed. A bovine pat ch was used to close the arteriotomy, removing the shunt, back flushing and forward flushing the vess els prior to completing the suture line. Flow was then restored up the external and then internal ca rotid artery. Protamine was given partially to reverse the heparin. After obtaining good hemostasis , the wound was irrigated and closed in layers.
[2017-09-07] MEDS: Latanoprost 0.005% Ophth Soln 2.5 ml Bottle EA EYE SCH (20:53)
--- NOTE | 2017-09-08 05:53 | PDOC.FM ---
- Subjective Subjective: No acute events overnight. Pt feels well. Denies any new neuro sx; she still endorses right arm weakness that she says is chronic. She was up sitting in her chair eating breakfast this am. Pt stated she talked to Dr. Salazar about going to rehab upon discharge. - Objective MAR Reviewed: Yes Vital Signs & Weight: Vital Signs (12 hours) Temp Pulse Resp Pulse Ox 09/08/17 04:00 97.9 F 09/07/17 23:34 100 09/07/17 23:00 98.1 F 09/07/17 20:00 97.1 F L 87 14 100 09/07/17 19:00 97.1 F L Weight Weight 75.841 kg Most Recent Monitor Data Heart Rate from ECG 77 NIBP 126/49 NIBP BP-Mean 69 Respiration from ECG 13 SpO2 100 I&O: 09/06/17 09/07/17 09/08/17 06:59 06:59 06:59 Intake Total 1540 1331 340 Output Total 775 Balance 1540 1331 -435 Result Diagrams: 09/07/17 02:08 09/07/17 02:08 <Cinda Collins - Last Filed: 09/08/17 08:42> - Objective Vital Signs & Weight: Vital Signs (12 hours) Temp Pulse Resp Pulse Ox 09/08/17 11:00 98.1 F 09/08/17 08:21 87 09/08/17 08:00 97.7 F 87 18 98 09/08/17 07:00 97.7 F 09/08/17 04:00 97.9 F Weight Weight 75.841 kg Most Recent Monitor Data Heart Rate from ECG 66 NIBP 123/52 NIBP BP-Mean 60 Respiration from ECG 13 SpO2 100 I&O: 09/07/17 09/08/17 09/09/17 06:59 06:59 06:59 Intake Total 1331 612 270 Output Total 1375 Balance 1331 -763 270 Result Diagrams: 09/07/17 02:08 09/07/17 02:08 <Ryan Valdes - Last Filed: 09/08/17 12:22> Phys Exam - Physical Examination Constitutional: NAD HEENT: PERRLA, moist MMs Neck: no JVD (left incision clean and dry, with surrounding eccymoses and swelling) Respiratory: no wheezing, no rales, clear to auscultation bilateral Cardiovascular: RRR, no significant murmur Gastrointestinal: soft, non-tender, no distention Neurological: normal sensation, moves all 4 limbs decreased strength in right upper extremity (4/5); CN2-12 intact Psychiatric: normal affect, A&O x 3 Skin: no rash, normal turgor, cap refill <2 seconds <Cinda Collins - Last Filed: 09/08/17 08:42> Dx/Plan (1) Carotid artery stenosis, unilateral Code(s): I65.29 - OCCLUSION AND STENOSIS OF UNSPECIFIED CAROTID ARTERY Status : Chronic (2) Postop carotid endarterectomy surveillance, encounter for Code(s): Z48.812 - ENCNTR FOR SURGICAL AFTCR FOLLOWING SURGERY ON THE CIRC SYS Status: Acute (3) CAD (coronary artery disease) Code(s): I25.10 - ATHSCL HEART DISEASE OF [place] CORONARY ARTERY W/O ANG PCTRS Status: Acute (4) Hyperlipidemia Code(s): E78.5 - HYPERLIPIDEMIA, UNSPECIFIED Status: Chronic (5) Hypertension Code(s): I10 - ESSENTIAL (PRIMARY) HYPERTENSION Status: Chronic (6) Hx of CABG Status: Acute (7) CVA of MCA, right Status: Acute - Plan Plan: Right MCA Infarct, now s/p left ICA endarterectomy - Neuro checks q4h - will transition to home meds today - will follow up on CV surgery and neurology recs - Needs follow-up with neurology outpatient - continue Plavix and statin - Heparin ggt-->dc today Hx of CVA with residual right sided weakness - on fluvastatin, aspirin, and plavix HTN - will transition to home bp meds today CAD s/p CABG - home meds HLD - reports hepatotoxicity and thrombocytopenia with Crestor and Lipitor in the past years ago - Ideally would like to be on high intensity statin but due to above reaction will continue home Fluvastatin - cholesterol elevated to 233, Fluvastatin increased in clinic recently, recommend repeat FLP in 6 weeks to reevaluate Lumbar Stenosis s/p Fusion - Tylenol prn Dispo:Can likely be downgraded from the ICU to inpatient tele/medical; may benefit from inpatient rehab vs outpatient PT/OT/Speech; will follow-up with case management and Dr. Salazar's recs. <Cinda Collins - Last Filed: 09/08/17 08:42> Attending Addendum - Attending Addendum I personally evaluated the patient and discussed the management with Dr. Nicolas Maxwell. I agree with the History, Examination, Assessment and Plan documented above with any addition or exceptions noted below. Patient doing well POD#1. She is to be transferred from CCU to stroke unit at this time. Work on rehab screening. Vitals stable. She is not taking statin therapy at this time and would likely be a good candidate outpatient for an IV regimen to decrease her LDL due to her repeated CVA and vascular disease. <Ryan Valdes - Last Filed: 09/08/17 12:22>
[2017-09-08] MEDS: Clopidogrel Bisulfate 75 MG TAB PO SCH (08:21)
[2017-09-08] MEDS: CEFAZOLIN/Water 2 GM/20 ML SYRINGE SLOW IVP SCH (08:21)
[2017-09-08] MEDS: Latanoprost 0.005% Ophth Soln 2.5 ml Bottle EA EYE SCH (20:42)
--- NOTE | 2017-09-09 06:42 | PDOC.FM ---
- Subjective Subjective: Pt complains of not sleeping well overnight. She has TYRA (had prior sleep study ) and has a CPAP. Tried to use it, but was agitated and it was irritating her left neck incision. Otherwise, no acute events overnight. - Objective MAR Reviewed: Yes Vital Signs & Weight: Vital Signs (12 hours) Temp Pulse Resp BP Pulse Ox 09/09/17 04:55 97.8 F 80 20 132/73 94 L 09/09/17 00:00 98.4 F 76 20 141/70 H 94 L 09/08/17 20:00 98.4 F 88 20 154/94 H 97 Weight Weight 75.841 kg Most Recent Monitor Data Heart Rate from ECG 69 NIBP 142/59 NIBP BP-Mean 71 Respiration from ECG 22 SpO2 100 I&O: 09/07/17 09/08/17 09/09/17 06:59 06:59 06:59 Intake Total 1331 612 750 Output Total 1375 900 Balance 1331 -763 -150 Result Diagrams: 09/07/17 02:08 09/07/17 02:08 <Cinda Collins - Last Filed: 09/09/17 09:12> - Objective Vital Signs & Weight: Vital Signs (12 hours) Temp Pulse Pulse Pulse Resp BP BP 09/09/17 11:49 98.0 F 74 18 09/09/17 09:49 86 85 154/86 H 137/78 09/09/17 09:37 88 09/09/17 09:31 97.9 F 88 17 09/09/17 04:55 97.8 F 80 20 09/09/17 00:00 98.4 F 76 20 BP Pulse Ox 09/09/17 11:49 130/74 94 L 09/09/17 09:49 09/09/17 09:37 09/09/17 09:31 141/72 H 94 L 09/09/17 04:55 132/73 94 L 09/09/17 00:00 141/70 H 94 L Weight Weight 75.841 kg Most Recent Monitor Data Heart Rate from ECG 69 NIBP 142/59 NIBP BP-Mean 71 Respiration from ECG 22 SpO2 100 I&O: 09/08/17 09/09/17 09/10/17 06:59 06:59 06:59 Intake Total 612 750 Output Total 1375 900 Balance -763 -150 Result Diagrams: 09/07/17 02:08 09/07/17 02:08 <LucioRyan Annette - Last Filed: 09/09/17 12:00> Phys Exam - Physical Examination Constitutional: NAD HEENT: PERRLA, moist MMs Neck: no nodes, supple crackles bilateral lung bases Cardiovascular: RRR, no significant murmur Gastrointestinal: soft, non-tender Musculoskeletal: no edema Neurological: non-focal, normal sensation decreased strenght in the right arm. Psychiatric: normal affect, A&O x 3 <Cinda Collins - Last Filed: 09/09/17 09:12> Dx/Plan (1) Carotid artery stenosis, unilateral Code(s): I65.29 - OCCLUSION AND STENOSIS OF UNSPECIFIED CAROTID ARTERY Status : Chronic (2) Postop carotid endarterectomy surveillance, encounter for Code(s): Z48.812 - ENCNTR FOR SURGICAL AFTCR FOLLOWING SURGERY ON THE CIRC SYS Status: Acute (3) CAD (coronary artery disease) Code(s): I25.10 - ATHSCL HEART DISEASE OF [place] CORONARY ARTERY W/O ANG PCTRS Status: Acute (4) Hyperlipidemia Code(s): E78.5 - HYPERLIPIDEMIA, UNSPECIFIED Status: Chronic (5) Hypertension Code(s): I10 - ESSENTIAL (PRIMARY) HYPERTENSION Status: Chronic (6) Hx of CABG Status: Acute (7) CVA of MCA, right Status: Acute - Plan Plan: 71 yo f with a pmhx of CAD s/p CABG, presented with right arm weakness and dysarthria found to have a left MCA CVA, now s/p left ICA endarterectomy. 1.) Left MCA Infarct, now s/p left ICA endarterectomy - pending rehab consult [facility] - Neuro checks q4h - continue home meds today - will follow up on CV surgery and neurology recs - Needs follow-up with neurology outpatient - continue Plavix and statin 2.) Hx of CVA with residual right sided weakness - on fluvastatin, aspirin, and plavix 3.)HTN - continue home meds 4.)CAD s/p CABG - home meds 5.) HLD - reports hepatotoxicity and thrombocytopenia with Crestor and Lipitor in the past years ago - Ideally would like to be on high intensity statin but due to above reaction will continue home Fluvastatin - cholesterol elevated to 233, Fluvastatin increased in clinic recently, recommend repeat FLP in 6 weeks to reevaluate 6.) Lumbar Stenosis s/p Fusion - Tylenol prn Dispo:pending [facility]. <Cinda Collins - Last Filed: 09/09/17 09:12> Attending Addendum - Attending Addendum I personally evaluated the patient and discussed the management with Dr. Nicolas Maxwell. I agree with the History, Examination, Assessment and Plan documented above with any addition or exceptions noted below. Patient doing well. Her BP is controlled s/p procedure. We are awaiting placement decision from inpatient rehab. Continue therapy services while here. <Ryan Valdes - Last Filed: 09/09/17 12:00>
[2017-09-09] MEDS: Clopidogrel Bisulfate 75 MG TAB PO SCH (09:37)
[2017-09-09] MEDS ORDERED: Melatonin 3 MG TAB PO PRN (12:39)
[2017-09-09 14:12] LABS: CKMB 0.5 ng/mL (0-6.6); Troponin I 0.011 ng/mL (< 0.028)
[2017-09-09] MEDS ORDERED: FLUVASTATIN SODIUM 20 MG CAP PO SCH (21:00)
[2017-09-09] MEDS: Latanoprost 0.005% Ophth Soln 2.5 ml Bottle EA EYE SCH (21:16)
[2017-09-10 06:00] LABS: #Eosinphils 0.5 thou/uL (0.0-0.7); #Lymphocytes 1.9 thou/uL (1.20-3.40); #Monocytes 0.6 thou/uL (0.11-0.59); #Neutrophils 3.5 thou/uL (1.40-6.50); %Basophils 0.4 % (0.0-1.0); %Eosinophils 7.1 % (0.0-10.0); %Lymphocytes 29.8 % (21.0-51.0); %Neutrophils 53.7 % (42.0-75.0); Hemoglobin 11.6 g/dL (12.0-16.0); Mean Corpuscular HGB CONC 33.3 g/dL (32.0-36.0); Mean Corpuscular Hemoglobin 31.5 pg (27.0-31.0); Mean Corpuscular Volume 94.6 fl (81.0-99.0); Mean Platelet Volume 6.7 fL (7.4-10.4); Platelet Count 210 thou/uL (130-400); RBC Distribution Width 11.8 % (11.5-14.5); Red Blood Cell (RBC) Count 3.68 mill/uL (4.20-5.40); White Blood Cell (WBC) Count 6.5 thou/uL (4.8-10.8)
[2017-09-10 06:25] LABS: Anion Gap 15 mmol/L (10-20); BUN (Urea Nitrogen) 14 mg/dL (9.8-20.1); Calc. Creatinine Clearance 77 mL/min (70-130); Calcium 9.6 mg/dL (7.8-10.44); Carbon Dioxide 27 mmol/L (23-31); Chloride 103 mmol/L (98-107); Estimated GFR-MDRD 72; Glucose 122 mg/dL (83-110); Sodium 141 mmol/L (136-145)
--- NOTE | 2017-09-10 06:55 | PDOC.FM ---
- Subjective Subjective: Pt had several PVCs every fourth beat yesterday afternoon. She was in the shower at that time. She had a few more single random PVCs, asymptomatic, sleeping. She states she slept well overnight. No complaints this am. - Objective MAR Reviewed: Yes Vital Signs & Weight: Vital Signs (12 hours) Temp Pulse Resp BP BP Pulse Ox 09/10/17 03:31 98.3 F 80 12 147/75 H 97 09/10/17 00:15 98.4 F 82 15 165/78 H 98 09/09/17 21:05 98.5 F 87 16 95 09/09/17 20:22 98.5 F 87 16 156/80 H 95 Weight Weight 75.841 kg Most Recent Monitor Data Heart Rate from ECG 69 NIBP 142/59 NIBP BP-Mean 71 Respiration from ECG 22 SpO2 100 I&O: 09/08/17 09/09/17 09/10/17 06:59 06:59 06:59 Intake Total 612 750 Output Total 1375 900 Balance -763 -150 Result Diagrams: 09/10/17 04:40 09/10/17 04:40 <Cinda Collins - Last Filed: 09/10/17 09:27> - Objective Vital Signs & Weight: Vital Signs (12 hours) Temp Pulse Pulse Pulse Resp BP BP 09/10/17 12:00 98.3 F 89 16 09/10/17 09:50 59 L 88 137/59 L 09/10/17 09:27 80 148/79 H 09/10/17 08:00 98.1 F 80 14 09/10/17 07:38 98.1 F 80 14 09/10/17 03:31 98.3 F 80 12 BP BP BP Pulse Ox 09/10/17 12:00 110/66 94 L 09/10/17 09:50 179/88 H 09/10/17 09:27 09/10/17 08:00 09/10/17 07:38 148/79 H 96 09/10/17 03:31 147/75 H 97 Weight Weight 75.841 kg Most Recent Monitor Data Heart Rate from ECG 69 NIBP 142/59 NIBP BP-Mean 71 Respiration from ECG 22 SpO2 100 I&O: 09/09/17 09/10/17 09/11/17 06:59 06:59 06:59 Intake Total 750 Output Total 900 Balance -150 Result Diagrams: 09/10/17 04:40 09/10/17 04:40 <Ryan Valdes - Last Filed: 09/10/17 12:46> Phys Exam - Physical Examination Constitutional: NAD HEENT: PERRLA, moist MMs Respiratory: no wheezing, no rales, clear to auscultation bilateral Cardiovascular: RRR, no significant murmur Gastrointestinal: soft, non-tender, no distention Musculoskeletal: no edema, pulses present Neurological: non-focal, normal sensation Lymphatic: no nodes Psychiatric: normal affect, A&O x 3 Skin: no rash <Cinda Collins - Last Filed: 09/10/17 09:27> Dx/Plan (1) Carotid artery stenosis, unilateral Code(s): I65.29 - OCCLUSION AND STENOSIS OF UNSPECIFIED CAROTID ARTERY Status : Chronic (2) Postop carotid endarterectomy surveillance, encounter for Code(s): Z48.812 - ENCNTR FOR SURGICAL AFTCR FOLLOWING SURGERY ON THE CIRC SYS Status: Acute (3) CAD (coronary artery disease) Code(s): I25.10 - ATHSCL HEART DISEASE OF [place] CORONARY ARTERY W/O ANG PCTRS Status: Acute (4) Hyperlipidemia Code(s): E78.5 - HYPERLIPIDEMIA, UNSPECIFIED Status: Chronic (5) Hypertension Code(s): I10 - ESSENTIAL (PRIMARY) HYPERTENSION Status: Chronic (6) Hx of CABG Status: Acute (7) CVA of MCA, right Status: Acute - Plan Plan: 71 yo f with a pmhx of CAD s/p CABG, presented with right arm weakness and dysarthria found to have a left MCA CVA, now s/p left ICA endarterectomy. 1.) Left MCA Infarct, now s/p left ICA endarterectomy - pending bed availability for placement at [facility] - Neuro checks q4h - continue home meds today - will follow up on CV surgery and neurology recs - Needs follow-up with neurology outpatient - continue Plavix and statin 2.) Hx of CVA with residual right sided weakness - on fluvastatin, aspirin, and plavix -Pt may be a candidate for Ripatha or Pralulent 3.)HTN - continue home meds 4.)CAD s/p CABG - home meds 5.) HLD - reports hepatotoxicity and thrombocytopenia with Crestor and Lipitor in the past years ago - Ideally would like to be on high intensity statin but due to above reaction will continue home Fluvastatin - cholesterol elevated to 233, Fluvastatin increased in clinic recently, recommend repeat FLP in 6 weeks to reevaluate - -Pt may be a candidate for Ripatha or Pralulent 6.) Lumbar Stenosis s/p Fusion - Tylenol prn Dispo:pending bed availability at [facility]. <Cinda Collins - Last Filed: 09/10/17 09:27> Attending Addendum - Attending Addendum I personally evaluated the patient and discussed the management with Dr. Nicolas Maxwell. I agree with the History, Examination, Assessment and Plan documented above with any addition or exceptions noted below. Patient doing well. No major issues today. Will need weaning from supplemental O2. Stable for discharge whenever she can be transferred to rehab facility. <Ryan Valdes - Last Filed: 09/10/17 12:46>
[2017-09-10] MEDS ORDERED: Lisinopril 10 MG TAB PO SCH (09:00)
[2017-09-10] MEDS: Clopidogrel Bisulfate 75 MG TAB PO SCH (09:27)
[2017-09-10 16:04] VITALS: BP 127/63; TEMP 98.4
== END 2017-09-10 20:55 | disposition home or self-care (01) | DRG 38 ==
LOC: SCSER 21:31 → 2SE 09-05 03:21 → CCU 09-07 09:25 → 2SE 09-08 16:22
PROVIDERS: ADMIT Family Medicine; ATTEND Family Medicine
PROC: 03CL0ZZ Extirpation of Matter from Left Internal Carotid Artery, Open Approach (ICD-10-PCS; principal; 2017-09-07)
PROC: 03UL0KZ Supplement Left Internal Carotid Artery with Nonautologous Tissue Substitute, Open Approach (ICD-10-PCS; 2017-09-07)
DX: I63.512 Cerebral infarction due to unspecified occlusion or stenosis of left middle cerebral artery (principal); G81.91 Hemiplegia, unspecified affecting right dominant side; D64.9 Anemia, unspecified; G45.9 Transient cerebral ischemic attack, unspecified; R47.1 Dysarthria and anarthria; I25.10 Atherosclerotic heart disease of native coronary artery without angina pectoris; I73.9 Peripheral vascular disease, unspecified; E78.5 Hyperlipidemia, unspecified; I10 Essential (primary) hypertension; J45.909 Unspecified asthma, uncomplicated; G47.33 Obstructive sleep apnea (adult) (pediatric); I65.23 Occlusion and stenosis of bilateral carotid arteries; Z86.73 Personal history of transient ischemic attack (TIA), and cerebral infarction without residual deficits; Z88.8 Allergy status to other drugs, medicaments and biological substances; Z79.02 Long term (current) use of antithrombotics/antiplatelets; Z79.82 Long term (current) use of aspirin; Z79.899 Other long term (current) drug therapy; Z95.1 Presence of aortocoronary bypass graft
CPT/HCPCS: 36415; 36416; 70450; 70496; 70498; 70549; 70553; 71045; 80048; 80053; 80061; 82553; 83036; 83735; 84443; 84484; 85025; 85610; 85730; 93005; 93010; 93306; A9579; G8978-GP-CJ; G8978-GP-CK; G8979-GP-CI; G8979-GP-CJ; G8980-GP-CJ; G8987-GO-CJ; G8988-GO-CI; G9162-GN-CI; G9163-GN-CI; J1100; J1642; J1644; J2405; J2704; J2720; J3010

== ENCOUNTER 2019-03-24 09:05 | Outpatient (CLI) | payer MEDICARE, MEDICAID ==
--- NOTE | 2019-03-24 11:11 | MRI ---
Exam: MRI of lumbar spine with and without contrast HISTORY: Degenerative disc disease. Low back pain with radiation down both lower extremities, left gr eater than right. Weakness and burning sensation. Numbness. Comparison: 01/13/2017 TECHNIQUE: Lumbar spine MRI was performed without intravenous gadolinium administration. Multi sequen tial, multiplanar performed. FINDINGS: There is T1 marrow signal hypointensity with associated T2 and STIR hyperintensity involving the infe rior aspect of L2 and the superior aspect of L3. There is mild associated enhancement. Intervening disc does not demonstrate any evidence of fluid or enhancement. There is metallic susceptibility hi fact secondary to bilateral transpedicular screws at L4 and L5 Spondylolisthesis: 3.5 mm of retrolisthesis of L1 upon L2, 5.5 mm proptosis of L2 upon L3, 3 mm retro listhesis of L3 upon L4. Appropriate signal intensity of the visualized paraspinal muscles. Conus medullaris terminates at the lower aspect of L1 Extensive laminectomy defect at L2-L3, L3-L4 and L4-L5. Postcontrast images do not demonstrate any abnormal enhancement with regards to the vertebral bodies. There is no abnormal enhancement within the thecal sac including the cauda equina and conus medullaris. There is a T2 hyperintense lesion with peripheral enhancement involving the posterior mid line soft tissues at L4. Multiple subcentimeter T2 hyperintensities with peripheral enhancement are suggested and are best demonstrated on the sagittal T2 and sagittal postcontrast images. T12-L1: Adequate disc hydration. No significant central canal stenosis. Bilaterally, neural foramina are patent L1-L2: Moderate loss of disc space height. Left and right paracentral disc bulges. Mild central canal stenosis. Right neural foramen is patent. Mild left foraminal narrowing. L2-L3: Desiccation with moderate loss of disc space height. There is a broad-based disc bulge, cigarette stamper ior decompression changes. Mild central canal stenosis. Severe right and moderate left foraminal narrowing L3-L4: Desiccation with moderate loss of disc space height. Broad-based disc bulge and facet hypertro phy result in moderate to severe central canal stenosis, despite the presence of posterior laminectomy defect. Moderate to severe right and left foraminal narrowing. L4-L5: Disc prosthesis and posterior decompression. There does appear to be some minimal residual dis c material in the posterior aspect of the disc space. Limited evaluation due to metallic susceptibility artifact. There may be a right paracentral disc protrusion. Questionable narrowing of the right subarticular zone. Overall, mild central canal stenosis. Moderate right and [id number] left foraminal narrowing. L5-S1: Adequate disc hydration. No significant posterior disc abnormality. Disc material encroaches u fabienne but does not obscure either traversing S1 nerve root. Mild facet hypertrophy. Right neural foramen is patent. Moderate left foraminal narrowing. IMPRESSION: 1. Degenerative changes of the lumbar spine as above 2. Spondylolisthesis as above. 3. Postsurgical changes as above 4. Small subcentimeter T2 hyperintensities with peripheral enhancement at the L4 level. Lesions are b est demonstrated on the sagittal T2 and postcontrast images. Small microabscesses cannot be excluded. CODE T Transcribed Date/Time: 03/24/2019 1:16 PM
--- NOTE | 2019-03-24 12:39 | RAD ---
LUMBAR SPINE SERIES THREE VIEWS: 03/24/19 HISTORY: Low back pain radiating down both lower extremities. COMPARISON: A 05/20/17 exam. The vertebral bodies maintain normal height. There is moderate disc narrowing at L1-2 and L2-3. Mild retrolisthesis at L2-3 and L3-4 are similar to the prior examination. Bilateral pedicle screws are again noted at L4-5 and disc narrowing is seen at L5-S1 level. On these flexion and extension views, I do not see any abnormal motion demonstrated. IMPRESSION: Arthritic and postop changes of the spine. POS: [facility]
== END 2019-03-24 09:06 | disposition home or self-care (01) ==
LOC: SCSMRI 09:05
PROVIDERS: ATTEND Neurological Surgery
DX: M51.36 Other intervertebral disc degeneration, lumbar region (principal); M48.062 Spinal stenosis, lumbar region with neurogenic claudication; M47.816 Spondylosis without myelopathy or radiculopathy, lumbar region; M43.16 Spondylolisthesis, lumbar region; Z98.890 Other specified postprocedural states
CPT/HCPCS: 72100; 72158; 82565

== ENCOUNTER 2020-04-11 14:23 | Outpatient (CLI) | payer MEDICARE, MEDICAID ==
--- NOTE | 2020-04-11 15:30 | MRI ---
MRI LUMBAR SPINE WITHOUT CONTRAST: 04/11/20 INDICATION: History of spinal stenosis and neurogenic claudication. COMPARISON: MRI lumbar spine with and without contrast dated 03/24/19. FINDINGS: Posterolateral spinal instrumentation at L4-L5 is similar appearing. The laminectomy changes at L4 an d L3 are stable appearing. Retrolisthesis of L3 on L4 and L2 on L3 is similar appearing. Conus is see n to terminate at L1. There is worsening Modic end plate degenerative changes at L2-3 and L3-4. At L5-S1, there is a broad based bulge, asymmetric to the left. There is mild facet joint degenerativ e change. There is mild left neural foraminal narrowing which is stable. At L4-5, there is no appreciable central canal narrowing. There is a broad based osteophyte complex i nducing mild right neural foraminal narrowing which is stable. At L3-4, there is a broad based bulge with facet hypertrophy inducing severe bilateral neural foramin al narrowing which is stable. Broad based bulge induces some mild ventral effacement of the thecal sa c. At L2-3, there is a broad based bulge with facet hypertrophy inducing severe right and moderate left neural foraminal narrowing which is stable. The broad based bulge induces mild central canal narrowin g. At L1-2, there is a broad based bulge with facet hypertrophy inducing mild central canal narrowing an d mild bilateral neural foraminal narrowing. IMPRESSION: 1. Stable postoperative lumbar changes. 2. Worsening Modic end plate degenerative changes atL2-3 and L3-4. 3. Stable multilevel neural foraminal narrowing as detailed above. POS: [facility]
== END 2020-04-11 14:24 | disposition home or self-care (01) ==
LOC: SCSMRI 14:23
PROVIDERS: ATTEND Nurse Practitioner Family
DX: M48.062 Spinal stenosis, lumbar region with neurogenic claudication (principal); M47.816 Spondylosis without myelopathy or radiculopathy, lumbar region; M48.07 Spinal stenosis, lumbosacral region; Z98.890 Other specified postprocedural states
CPT/HCPCS: 72148

== ENCOUNTER 2022-02-18 11:04 | Outpatient (CLI) | payer MEDICARE, MEDICAID | END 2022-02-18 11:05 | disposition home or self-care (01) | LOC: BICRAD 11:04 | PROVIDERS: ATTEND Nurse Practitioner Family | DX: M25.551 Pain in right hip (principal) ==

== ENCOUNTER 2022-06-10 13:00 | Outpatient (CLI) | payer MEDICARE, MEDICAID | END 2022-06-10 13:01 | disposition home or self-care (01) | LOC: BICCT 13:00 | PROVIDERS: ATTEND Anesthesiology Pain Medicine | DX: M47.812 Spondylosis without myelopathy or radiculopathy, cervical region (principal) | CPT/HCPCS: 72125 ==

== ENCOUNTER 2022-06-17 08:31 | Outpatient (CLI) | payer MEDICARE, MEDICAID | END 2022-06-17 08:32 | disposition home or self-care (01) | LOC: RAD 08:31 | PROVIDERS: ATTEND Anesthesiology Pain Medicine | DX: R13.14 Dysphagia, pharyngoesophageal phase (principal); K44.9 Diaphragmatic hernia without obstruction or gangrene; K21.9 Gastro-esophageal reflux disease without esophagitis; K22.4 Dyskinesia of esophagus | CPT/HCPCS: 74220 ==

== ENCOUNTER 2023-07-14 09:20 | Outpatient (CLI) | payer MEDICARE, MEDICAID | END 2023-07-14 09:21 | disposition home or self-care (01) | LOC: BICRAD 09:20 | PROVIDERS: ATTEND Nurse Practitioner Family | DX: S89.91XA Unspecified injury of right lower leg, initial encounter (principal) ==